=== PATIENT | male | born 1930 | race Caucasian/White ===

== ENCOUNTER 2021-09-10 00:13 | Emergency (ER) | payer MEDICARE, BC ==
[~2021-09-10 00:13] MED LIST: AEROECLIPSE II1 EACH MC; ALBUTEROL2.5 MG/3 M INH; ATROVENT HFA12.9 GM INH; IPRATROPIU0.2 MG/1 M INH; OMNICEF 300 MG300 MG PO; PREDNISONE 50 M50 MG PO; PREDNISONE20 MG PO; PROAIR HFA8.5 GM INH; ROBITUSSIN AC480 ML PO; TESSALON PERLE100 MG PO; ZITHROMAX250 MG PO
[2021-09-10 00:47] LABS: HEMOGLOBIN 15.3 gm/dl (14.0-17.5); RED BLOOD COUNT 4.74 M/UL (4.20-5.50); WHITE BLOOD COUNT 7.4 K/UL (4.5-11.0)
[2021-09-10 01:03] LABS: BUN/CREATININE RATIO 20 (0-10)
[2021-09-10] MEDS ORDERED: DELSYM30 MG/5 ML PO (03:32)
[2021-09-10] MEDS ORDERED: ZITHROMAX250 MG PO (03:32)
[2021-09-10] MEDS ORDERED: MEDROL DOSEPAK 24 MG PO (03:32)
[2021-09-10] MEDS ORDERED: FLONASE 0.05% N16 GM (03:32)
== END 2021-09-10 03:41 | disposition home or self-care (01) ==
LOC: ER1 00:13
PROVIDERS: Physician Assistant Medical
DX: R06.02 Shortness of breath (principal); R05.9 Cough, unspecified; R06.2 Wheezing; I10 Essential (primary) hypertension
CPT/HCPCS: 0240U; 36600; 71045; 80053; 82550; 82553; 82803; 83605; 83880; 84484; 85025; 87040; 93005; 94664; 96374; 99285; J2930